=== PATIENT | male | born 1960 | race Asian ===

== ENCOUNTER 2020-06-24 13:41 | Emergency (ER) | payer MEDICAID ==
[~2020-06-24] VITALS: Ht 167.6 cm; Wt 68.2 kg
[~2020-06-24 13:41] MED LIST: ACYC400T PO; ALBU18HF2 INH; FLONASE NS; LISI10TA4 PO; NAPR-1166 PO; OMEP20CA15 PO
[2020-06-24 13:48] VITALS: BP 128/94
[2020-06-24] MEDS ORDERED: PRED20TA PO (15:10)
[2020-06-24] MEDS ORDERED: DIPH25CA83 PO (15:10)
== END 2020-06-24 15:41 | disposition home or self-care (01) ==
LOC: ER 13:42
DX: R21 Rash and other nonspecific skin eruption (principal); T36.0X5A Adverse effect of penicillins, initial encounter; K08.89 Other specified disorders of teeth and supporting structures; J45.909 Unspecified asthma, uncomplicated; K21.9 Gastro-esophageal reflux disease without esophagitis; Z88.1 Allergy status to other antibiotic agents; Z79.899 Other long term (current) drug therapy; Y92.89 Other specified places as the place of occurrence of the external cause
CPT/HCPCS: 99283

== ENCOUNTER 2020-09-06 21:38 | Emergency (ER) | payer MEDICAID ==
[~2020-09-06] VITALS: Ht 167.6 cm; Wt 68.2 kg
[~2020-09-06 21:38] MED LIST changes: +DIPH25CA83 PO; +LISI10TA27 PO; -LISI10TA4 PO
[2020-09-06] MEDS ORDERED: methylPREDNISolone sod succ 125mg/2ml vial IV ONE (21:45)
[2020-09-06] MEDS ORDERED: epiNEPHrine 1 mg/ml inj SQ STA (21:45)
[2020-09-06] MEDS ORDERED: diphenhydrAMINE 50 mg/ml inj IV ONE (21:45)
[2020-09-06] MEDS ORDERED: racepinephrine 11.25mg/0.5ml nebule IH ONE (21:45)
[2020-09-06] MEDS ORDERED: famotidine/PF 10 mg/ml inj IV ONE (21:45)
[2020-09-06 21:57] LABS: BASOPHILS % (AUTO) 0.6 % (0-1); EOSINOPHILS # (AUTO) 0.2 X10'3 (0-0.9); EOSINOPHILS % (AUTO) 2.6 % (0-6); HEMATOCRIT 48.2 % (42.0-52.0); HEMOGLOBIN 15.7 g/dl (14.0-17.9); LYMPHOCYTES # (AUTO) 3.1 X10'3 (1.1-4.8); LYMPHOCYTES % (AUTO) 50.8 % (21-51); MEAN CORPUSCULAR HEMOGLOBIN 26.9 PG (27.0-31.0); MEAN CORPUSCULAR HGB CONC 32.5 g/dL (33.0-36.5); MEAN CORPUSCULAR VOLUME 82.6 FL (78-98); MEAN PLATELET VOLUME 7.7 FL (7.4-10.4); MONOCYTES # (AUTO) 0.4 X10'3 (0-0.9); MONOCYTES % (AUTO) 5.7 % (2-12); NEUTROPHILS # (AUTO) 2.5 X10'3 (1.8-7.7); NEUTROPHILS % (AUTO) 40.3 % (42-75); PLATELET COUNT 291 X10'3 (140-440); RED BLOOD COUNT 5.83 X10'6 (4.70-6.10); RED CELL DISTRIBUTION WIDTH 13.8 % (11.5-14.5); WHITE BLOOD COUNT 6.2 X10'3 (4.5-11.0)
--- NOTE | 2020-09-06 21:57 | NUR ---
labs drawn piv placed, rt at bedside beginning racemic epi now. pt just given pepcid and solumedrol and benedryl iv and epinephrin sq. Pts kb appears to be slightly improved.
--- NOTE | 2020-09-06 22:00 | NUR ---
clear breath sounds and no stridor
[2020-09-06 22:12] LABS: ALANINE AMINOTRANSFERASE 18 U/L (12-78); ALBUMIN 3.6 G/DL (3.4-5.0); ALBUMIN/GLOBULIN RATIO 0.9 (1.1-1.5); ALKALINE PHOSPHATASE 72 IU/L (46-116); ANION GAP 12 (8-16); ASPARTATE AMINO TRANSFERASE 14 U/L (10-37); BILIRUBIN,TOTAL 0.3 MG/DL (0.1-1.0); BLOOD UREA NITROGEN 21 MG/DL (7-18); BUN/CREATININE RATIO 13.2 (5.4-32.0); CALCIUM 8.8 MG/DL (8.5-10.1); CHLORIDE 105 MMOL/L (99-107); CREATININE 1.59 MG/DL (0.60-1.10); GLUCOSE 161 MG/DL (70-104); SODIUM 140 MMOL/L (135-145); TOTAL CARBON DIOXIDE 22.6 MMOL/L (24-32); TOTAL PROTEIN 7.6 G/DL (6.4-8.2); eGFR 45 ML/MIN
[2020-09-06 22:23] VITALS: BP 144/94
== END 2020-09-06 22:51 | disposition home or self-care (01) ==
LOC: ER 21:39
DX: R21 Rash and other nonspecific skin eruption (principal); T36.0X5A Adverse effect of penicillins, initial encounter; J45.909 Unspecified asthma, uncomplicated; K21.9 Gastro-esophageal reflux disease without esophagitis; Z88.1 Allergy status to other antibiotic agents; Z88.8 Allergy status to other drugs, medicaments and biological substances; Z79.2 Long term (current) use of antibiotics; Z79.899 Other long term (current) drug therapy; Y92.89 Other specified places as the place of occurrence of the external cause
CPT/HCPCS: 36415; 71045; 80053; 85025; 93005; 94640; 96372; 96374; 96375; 99291; J0171; J1200; J2930; J3490; 94760

== ENCOUNTER 2021-09-08 14:51 | Emergency (ER) | payer MEDICAID ==
[~2021-09-08] VITALS: Ht 167.6 cm; Wt 68.2 kg
[2021-09-08] MEDS ORDERED: hydrOXYzine 25 MG tablet PO ONE (15:20)
[2021-09-08] MEDS ORDERED: methylPREDNISolone sod succ 125mg/2ml vial IV ONE (15:20)
[2021-09-08] MEDS ORDERED: famotidine/PF 10 mg/ml inj IV ONE (15:20)
[2021-09-08 16:05] VITALS: BP 154/106
--- NOTE | 2021-09-08 16:08 | NUR ---
Pt given and understands d/c instructions. IV d/c'd, catheter was intact. Ambulatory with a steady gait.
== END 2021-09-08 16:08 | disposition home or self-care (01) ==
LOC: ER 14:52
DX: T78.40XA Allergy, unspecified, initial encounter (principal); F17.200 Nicotine dependence, unspecified, uncomplicated; J45.909 Unspecified asthma, uncomplicated; K21.9 Gastro-esophageal reflux disease without esophagitis; Z88.1 Allergy status to other antibiotic agents; Z91.013 Allergy to seafood; Z79.899 Other long term (current) drug therapy
CPT/HCPCS: 96374; 96375; 99284; J2930; J3490; Q0177

== ENCOUNTER 2022-02-20 20:16 | Emergency (ER) | payer MEDICAID ==
[~2022-02-20] VITALS: Ht 167.6 cm; Wt 68.2 kg
[2022-02-20] MEDS ORDERED: diphenhydrAMINE 25mg capsule PO ONE (20:55)
--- NOTE | 2022-02-20 20:56 | NUR ---
EXPLAINED PT'S RASH TO ROCKY. OBTAINED A VERBAL ORDER FOR BENADRYL 50 MG PO NOW. ORDER REPEATED BACK FOR ACCURACY. ORDER PLACED.
[2022-02-20] MEDS ORDERED: dexamethasone sod phosphate 10mg/ml inj PO STA (23:04)
[2022-02-20] MEDS ORDERED: famotidine 10mg tablet PO STA (23:04)
[2022-02-20] MEDS ORDERED: epiNEPHrine 1 mg/ml inj SQ STA (23:04)
[2022-02-20] MEDS ORDERED: EPIN0.3P3 IM (23:14)
[2022-02-20] MEDS ORDERED: famotidine 20mg tablet PO ONE (23:15)
[2022-02-20 23:30] VITALS: BP 152/99
== END 2022-02-20 23:31 | disposition home or self-care (01) ==
LOC: ER 20:16
DX: T78.40XA Allergy, unspecified, initial encounter (principal); J45.909 Unspecified asthma, uncomplicated; K21.9 Gastro-esophageal reflux disease without esophagitis; Z91.013 Allergy to seafood; Z88.0 Allergy status to penicillin; Z88.1 Allergy status to other antibiotic agents; Z79.1 Long term (current) use of non-steroidal anti-inflammatories (NSAID); Z79.2 Long term (current) use of antibiotics; Z79.899 Other long term (current) drug therapy
CPT/HCPCS: 96374; 99284; J0171; J1100; Q0163

== ENCOUNTER 2024-06-10 00:29 | Emergency (ER) | payer MEDICAID ==
[~2024-06-10] VITALS: Ht 167.6 cm; Wt 70.7 kg
[~2024-06-10 00:29] MED LIST changes: +EPIN0.3P3 IM
[2024-06-10 00:46] VITALS: BP 149/97; PULSE 72; RESP 16; O2SAT 98
[2024-06-10] MEDS: diphenhydrAMINE 25mg capsule PO ONE (01:42)
[2024-06-10] MEDS ORDERED: DIPH25CA83 PO (03:29)
[2024-06-10] MEDS ORDERED: DEC4T PO (03:29)
[2024-06-10] MEDS ORDERED: CIME800T PO (03:29)
[2024-06-10] MEDS: normal saline 1000ML IV soln IVB STA (03:35)
[2024-06-10] MEDS: diphenhydrAMINE 50 mg/ml inj IV ONE (03:36)
[2024-06-10] MEDS: methylPREDNISolone sod succ 125mg/2ml vial IV ONE (03:36)
[2024-06-10] MEDS: famotidine/PF 10 mg/ml inj IV ONE (03:36)
[2024-06-10] MEDS: epiNEPHrine 1 mg/ml inj SQ ONE (03:37)
[2024-06-10 04:40] VITALS: TEMP 98.9
[2024-06-11] MEDS ORDERED: PRED20TA PO (21:43)
== END 2024-06-10 04:41 | disposition home or self-care (01) ==
LOC: ER 00:29
DX: T78.2XXA Anaphylactic shock, unspecified, initial encounter (principal); J45.909 Unspecified asthma, uncomplicated; K21.9 Gastro-esophageal reflux disease without esophagitis; Z88.0 Allergy status to penicillin; Z88.8 Allergy status to other drugs, medicaments and biological substances; Y92.89 Other specified places as the place of occurrence of the external cause
CPT/HCPCS: 96361; 96372; 96374; 96375; 99284; J0171; J1200; J2919; J3490; J7030; Q0163

== ENCOUNTER 2024-06-11 20:57 | Emergency (ER) | payer MEDICAID ==
[~2024-06-11] VITALS: Ht 167.6 cm; Wt 70.7 kg
[~2024-06-11 20:57] MED LIST changes: +CIME800T PO; +DEC4T PO
[2024-06-11 21:03] VITALS: BP 130/95; PULSE 90; RESP 18; O2SAT 96
[2024-06-11] MEDS ORDERED: PRED20TA PO (21:43)
[2024-06-11] MEDS: hydrOXYzine 25 MG tablet PO ONE (21:44)
[2024-06-11] MEDS: famotidine 20mg tablet PO ONE (21:44)
[2024-06-11] MEDS: dexamethasone sod phosphate 10mg/ml inj IM ONE (21:45)
[2024-06-11 21:49] VITALS: TEMP 97.8
== END 2024-06-11 21:52 | disposition home or self-care (01) ==
LOC: ER 20:58
DX: T78.1XXA Other adverse food reactions, not elsewhere classified, initial encounter (principal); L27.2 Dermatitis due to ingested food; K21.9 Gastro-esophageal reflux disease without esophagitis; J45.909 Unspecified asthma, uncomplicated; Z91.013 Allergy to seafood; Z88.1 Allergy status to other antibiotic agents; Z91.018 Allergy to other foods; Z79.1 Long term (current) use of non-steroidal anti-inflammatories (NSAID); Z79.899 Other long term (current) drug therapy; X58.XXXA Exposure to other specified factors, initial encounter
CPT/HCPCS: 96372; 99283; J1100; Q0177

== ENCOUNTER 2024-06-14 01:29 | Emergency (ER) | payer MEDICAID ==
[~2024-06-14] VITALS: Ht 167.6 cm; Wt 71.4 kg
[~2024-06-14 01:29] MED LIST changes: +PRED20TA PO
[2024-06-14 02:03] LABS: BASOPHILS % (AUTO) 0.5 % (0-1); EOSINOPHILS # (AUTO) 0.1 X10'3 (0-0.9); EOSINOPHILS % (AUTO) 1.5 % (0-6); HEMOGLOBIN 13.7 g/dl (14.0-17.9); LYMPHOCYTES # (AUTO) 2.8 X10'3 (1.1-4.8); LYMPHOCYTES % (AUTO) 31.8 % (21-51); MEAN CORPUSCULAR HEMOGLOBIN 26.4 PG (27.0-31.0); MEAN CORPUSCULAR HGB CONC 32.7 g/dL (33.0-36.5); MEAN CORPUSCULAR VOLUME 80.8 FL (78-98); MEAN PLATELET VOLUME 7.5 FL (7.4-10.4); MONOCYTES % (AUTO) 10.9 % (2-12); NEUTROPHILS # (AUTO) 4.9 X10'3 (1.8-7.7); NEUTROPHILS % (AUTO) 55.3 % (42-75); PLATELET COUNT 259 X10'3 (140-440); RED CELL DISTRIBUTION WIDTH 14.4 % (11.5-14.5); WHITE BLOOD COUNT 8.9 X10'3 (4.5-11.0)
[2024-06-14 02:21] LABS: ALANINE AMINOTRANSFERASE 34 U/L (12-78); ALBUMIN 3.4 G/DL (3.4-5.0); ALBUMIN/GLOBULIN RATIO 0.9 (1.1-1.5); ALKALINE PHOSPHATASE 62 IU/L (46-116); ANION GAP 9 (8-16); ASPARTATE AMINO TRANSFERASE 19 U/L (10-37); BILIRUBIN,TOTAL 0.3 MG/DL (0.1-1.0); BLOOD UREA NITROGEN 27 MG/DL (7-18); BUN/CREATININE RATIO 20.5 (10.0-20.0); CALCIUM 8.6 MG/DL (8.5-10.1); CHLORIDE 105 MMOL/L (99-107); CREATININE 1.32 MG/DL (0.60-1.10); GLUCOSE 99 MG/DL (70-104); POTASSIUM 3.3 MMOL/L (3.5-5.1); SODIUM 140 MMOL/L (135-145); TOTAL CARBON DIOXIDE 26.5 MMOL/L (24-32); TOTAL PROTEIN 7.3 G/DL (6.4-8.2); eCRCL 53 ML/MIN; eGFR 55 ML/MIN
[2024-06-14 02:30] LABS: PRO BRAIN NATRIURETIC PEPTIDE 87 PG/ML (0-125)
[2024-06-14] MEDS ORDERED: NAPR-56 PO (03:27)
[2024-06-14] MEDS ORDERED: COLC0.6T72 PO (03:27)
[2024-06-14] MEDS: naproxen 500mg tablet PO ONE (03:45)
[2024-06-14] MEDS: dexamethasone 4mg tablet PO ONE (03:45)
[2024-06-14] MEDS: colchicine 0.6mg tablet PO ONE (03:45)
[2024-06-14 03:54] VITALS: BP 144/70; PULSE 74; RESP 18; TEMP 97.9; O2SAT 98
[2024-06-14 04:32] LABS: C-REACTIVE PROTEIN 1.67 MG/DL (0.0-0.5)
[2024-06-14 04:40] LABS: URIC ACID 6.8 MG/DL (3.5-7.2)
== END 2024-06-14 03:49 | disposition home or self-care (01) ==
LOC: ER 01:30
DX: M30.0 Polyarteritis nodosa (principal); J45.909 Unspecified asthma, uncomplicated; K21.9 Gastro-esophageal reflux disease without esophagitis; Z88.1 Allergy status to other antibiotic agents; Z91.013 Allergy to seafood; Z79.899 Other long term (current) drug therapy
CPT/HCPCS: 36415; 71045; 80053; 83880; 84484; 84550; 85025; 85651; 86140; 93005; 99285

== ENCOUNTER 2024-09-01 17:27 | Inpatient (IN) | payer MEDICAID ==
[~2024-09-01] VITALS: Ht 167.6 cm; Wt 72.1 kg
[~2024-09-01 17:27] MED LIST changes: +COLC0.6T72 PO; -PRED20TA PO
--- NOTE | 2024-09-01 17:44 | Physician Documentation ---
History of Present Illness ~ Chief Complaint: Stroke Alert Stated Complaint: NUMBNESS L ARM AND FACE Time Seen by MD: 17:43 [facility] Source: patient, RN/MD, RN notes reviewed, old records Mode of Arrival: POV Exam Limitations: no limitations HPI 63 year old male presents to the emergency room for complaints of a stroke alert. Patient states that he had woken up from a nap at 1500 with numbness of his left face and arm but not in his legs. He states that he has a little headache right now and was previously experiencing back pain. He denies any recent illness, no weakness, and no facial droop. Patients last known normal was prior to his nap but he states he cannot recall when he fell asleep. Patient denies any other associated symptoms at this time. Patient denies any other alleviating or exacerbating factors. Medication Reconciliation Allergies: Coded Allergies: shrimp (Verified Allergy, Severe, ANAPHALYXIS, 06/14/24) amoxicillin (Verified Allergy, Unknown, 06/14/24) Scheduled Albuterol Sulfate (Ventolin Hfa), 2 PUFFS INH Q4HPRN, (Reported) Atorvastatin Calcium (Atorvastatin Calcium), 1 TAB PO DAILY, (Reported) Losartan/Hydrochlorothiazide (Losartan-Hctz 100-12.5 Mg Tab), 1 TAB PO DAILY, (Reported) Meloxicam (Meloxicam), 1 TAB PO DAILY, (Reported) Omeprazole (Omeprazole), 1 CAP PO DAILY, (Reported) Tizanidine Hcl (Zanaflex), 1-2 TAB PO HS, (Reported) Scheduled PRN Aspirin/Acetaminophen/Caffeine (Excedrin Extra Strength Tablet), 2 TAB PO Q6H PRN for pain, (Reported) Diphenhydramine HCl (Diphenhydramine HCl), 1 TAB PO Q6H PRN for allergies, (Reported) Loratadine (Loratadine), 1 TAB PO DAILY PRN for allergies, (Reported) Discontinued Medications Acyclovir (Acyclovir), 1 TABLET PO Q8H, (Reported) Discontinued Reason: patient no longer taking Cimetidine (Tagamet), 1 TAB PO Q12H Discontinued Reason: patient no longer taking Colchicine (Colchicine), 1 TAB PO DAILY Discontinued Reason: patient no longer taking Dexamethasone (Decadron), 4 TAB PO DAILY Discontinued Reason: patient no longer taking Diphenhydramine Hcl (Benadryl), 1 CAP PO HS Discontinued Reason: patient no longer taking Diphenhydramine Hcl (Benadryl), 1 CAP PO TID Discontinued Reason: patient no longer taking Epinephrine (Epipen 2-Juan), 1 SYR IM ONCE Discontinued Reason: patient no longer taking Lisinopril (Lisinopril), 1 TABLET PO DAILY, (Reported) Discontinued Reason: patient no longer taking Naproxen (Naproxen), 1 TABLET PO BID, (Reported) Discontinued Reason: patient no longer taking [Flonase], 50 MCG NS, (Reported) Discontinued Reason: patient no longer taking Past Medical History Past Medical History: Headache, Asthma, GERD Past Surgical History: no surgical history Alcohol Use: None Drug Use: none Lives In: Home Review of Systems All Other Systems at this time: Reviewed and Negative ROS As stated above in the HPI, otherwise all systems are reviewed and negative. Physical Exam Vital Signs: RN Vital Signs have been reviewed: Yes, Temperature: 97.1, Source: Temporal, Heart Rate: 93, Respiratory Rate: 18, BP: 132/84, Pulse Oximetry: 97, Weight: 72.100 Oxygen Flow Rate: 0 Pulse Oximetry Reflects: adequate oxygenation General Appearance General: The patient is well developed, well nourished, nontoxic appearing and is in no acute distress. Skin: [place], warm and dry with no rashes. HEENT: Head was normocephalic and atraumatic. Eyes - pupils equal, round, reactive to light and accommodation. Extraocular movements were intact. Conjunctivae were nonicteric. Ears - bilateral tympanic membranes were normal. The mouth and oropharynx were clear with moist mucous membranes. There were no pharyngeal exudates or erythema. Neck: Supple and nontender. There was no jugular venous distention, lymphadeno hernando, thyromegaly or masses. Chest: Clear to auscultation bilaterally without wheezes, rales or rhonchi. No accessory muscle use. No dullness to percussion. Heart: Rate regular and rhythmic. S1, S2. No murmurs. Palpation of the chest wall was normal. No rubs or thrills. Abdomen: Soft, nontender and nondistended. Positive bowel sounds. No guarding or rebound. No hepatosplenomegaly or palpable masses. Extremities: No cyanosis, clubbing or edema. The patient moves all extremities. Pulses were equal and symmetric. Neurologic: Numbness to V1/2/3 extending to neck and left extremities. Cranial nerves II-XII were intact. Motor strength was 5/5 in all four extremities. Deep tendon reflexes were intact in both upper and lower extremities. Psychologic: The patient was oriented to person, place and time. The patient demonstrated appropriate judgement and insight. Progress Results/Orders Reviewed/noted all lab results: Yes Results/Orders Orders - JEFFRY DASILVA MD Monitor (09/01/24 17:36) 2 Large Bore Ivs (09/01/24 17:36) Electrocardiogram (09/01/24 17:36) Chest,Single View (09/01/24 17:51) Accucheck (09/01/24 17:36) Ct Stroke Alert (09/01/24 17:36) [place] Prov.Neuro Consult (09/01/24 17:44) Cta Neck/Head (09/01/24 19:50) Page Hospitalist (09/01/24 19:55) Fill Out Med Reconciliation (09/01/24 19:55) Completed Orders - JEFFRY DASILVA MD Cbc/Diff (09/01/24 17:36) Electrocardiogram (09/01/24 17:36) Chest,Single View (09/01/24 17:51) Ct Stroke Alert (09/01/24 17:36) BMP (09/01/24 17:36) PTT (09/01/24 17:36) Pt Inr (09/01/24 17:36) ESR (09/01/24 17:44) C-Reactive Protein (09/01/24 17:42) Cta Neck/Head (09/01/24 19:50) Aspirin 81mg Chew Tablet (Aspirin 81mg C (09/01/24 19:55) Clopidogrel Tablet (Plavix Tablet) (09/01/24 19:55) Iohexol 350mg/Ml 100ml (Omnipaque 350mg/ (09/01/24 19:56) Vital Signs 09/01/24 09/01/24 09/01/24 09/01/24 17:31 19:36 19:45 19:50 Temp 97.1 97.1 Pulse 93 80 73 Resp 18 16 16 16 B/P (MAP) 132/84 116/85 (95) 114/85 Pulse Ox 97 98 98 O2 Flow Rate 0 0 Laboratory Tests Test 09/01/24 17:37 09/01/24 17:42 Glucometer 116 H White Blood Count 7.6 Red Blood Count 5.62 Hemoglobin 15.0 Hematocrit 45.4 Mean Corpuscular Volume 80.8 Mean Corpuscular Hemoglobin 26.7 L Mean Corpuscular Hemoglobin Concent 33.0 Red Cell Distribution Width 14.7 H Platelet Count 281 Mean Platelet Volume 7.4 Neutrophils (%) (Auto) 55.4 Lymphocytes (%) (Auto) 30.3 Monocytes (%) (Auto) 8.6 Eosinophils (%) (Auto) 4.5 Basophils (%) (Auto) 1.2 H Neutrophils # (Auto) 4.2 Lymphocytes # (Auto) 2.3 Monocytes # (Auto) 0.6 Eosinophils # (Auto) 0.3 Basophils # (Auto) 0.1 CBC Comment Erythrocyte Sedimentation Rate 4 Prothrombin Time 10.3 INR International Normalized Ratio 1.0 Activated Partial Thromboplast Time 27 Coagulation Comments Sodium Level 138 Potassium Level 4.1 Chloride Level 103 Carbon Dioxide Level 25.8 Anion Gap 9 Blood Urea Nitrogen 22 H Creatinine 1.40 H Estimated GFR/1.73 m2 52 BUN/Creatinine Ratio 15.7 Glucose Level 111 H Calcium Level 8.4 L C-Reactive Protein < 0.05 Albumin 3.8 Chemistry Comments Re-Evaluation Re-Evaluation : Re-Evaluation: Unchanged Progress Patient was seen and examined. Patient was given reassurance. Patient presented with unusual presentation with left upper extremity numbness as well as some facial numbness as well. It was sudden onset. Patient had a stroke alert called. CTA of the head and neck was performed as well as the patient receiving aspirin and Plavix. Patient was seen by tele neurology. Patient's laboratory work was obtained. Patient's CBC was within normal limits. Chemistry was also reassuring and within normal limits. Coagulations within normal limits. Radiographic studies were reassuring patient was then admitted for further workup and care. Continuous school lunch monitor interpretation shows normal sinus rhythm heart rate 90s, no ectopy, normal, my interpretation. Pulse oximetry monitor interpretation shows normal oxygenation 97% room air, normal, my interpretation. EKG/XRAY/CT/US/VASC/MRI Chest X-Ray : Additional Comments EXAM: XR Chest, 1 View CLINICAL INDICATION: Stroke Alert TECHNIQUE: Frontal view of the chest. COMPARISON: DI CHEST,SINGLE VIEW on DOS: 06/14/24, CHEST,SINGLE VIEW on DOS: 09/06/20 FINDINGS: LUNGS AND PLEURAL SPACES: Unremarkable. No consolidation. No pneumothorax. HEART: Unremarkable. No cardiomegaly. MEDIASTINUM: Unremarkable. Normal mediastinal contour. BONES/JOINTS: Unremarkable. No acute fracture. OTHER FINDINGS: . None. IMPRESSION: No acute cardiopulmonary process. Electronically Signed by:MYCHAL AYERS MD Date & Time: 09/01/[address] #1: Impression Clinical History left sided numbness Comparison CT HEAD on 09/01/2024, 184 images. Technique: MIPS reconstruction was performed in multiple planes. All CT scans at this medical facility are performed using dose modulation techniques as appropriate to a performed exam including the following: Automated exposure control was utilized; adjustment of the mA and/or kV according to patient size; and use of iterative reconstruction technique. All CT studies are reported to the Dose Index Registry of the [employer] [place] [employer]. 3D images be reconstructed or obtained with maximum intensity projection postprocessing (MIP), volume rendered or other 3D technique. Validated velocity measurements with angiographic measurements, velocity criteria are extrapolated from diameter data as defined by the Society of Radiologists in Ultrasound Consensus Conference Radiology 2003; 229; 340-346. There is 0 % stenosis using NASCET criteria. Contrast: OMNI 350 100ML Radiation Dose: CTDI (mGy): 30.68 12.68; DLP (mGy-cm): 490.83 RAFAEL RUSH, [id number] FINDINGS: Nonhemodynamically significant vascular calcification involving bilateral carotid siphons. The anterior and posterior circulation are intact. No significant flow cutoff, stenosis, vascular malformation, or aneurysm is noted. Aortic arch and great vessels demonstrate vascular calcification. The common and internal carotid arteries are normal in course and caliber. Left vertebral dominance is identified. No significant flow cutoff, stenosis, vascular malformation, or aneurysm is noted. IMPRESSION: Mild nonhemodynamically significant vascular calcification as described. Otherwise unremarkable CTA neck. Unremarkable [place]. Note: The diameters of the mid and distal internal carotid arteries were used as denominators for measuring ICA stenoses, as specified by the NASCET criteria. This report was electronically signed by Camilo Jimenez MD on 09/01/2024 9:52:02 PM. Electronically Signed by:CAMILO JIMENEZ MD Date & Time: 09/01/242153 CT #2: Impression EXAM: CT CT STROKE ALERT; DATE: 09/01/2024 05:45 PM HISTORY: Stroke Alert COMPARISON: None TECHNIQUE: Axial images were obtained and reformatted in coronal and sagittal planes. All CT scans at this medical facility are performed using dose modulation techniques as appropriate to a performed exam including the following: Automated exposure control was utilized; adjustment of the MA and/or KV according to patient size; and use of iterative reconstruction technique. CT Dose: CTDI volume is T2 mGy. Dose-length product is 862 mGy*cm FINDINGS: Supratentorial Region: No evidence for large acute territorial ischemia. No intracranial hemorrhage is noted. Posterior Fossa: No acute abnormality. Brainstem: Unremarkable. Sellar/Suprasellar Region: Unremarkable. Ventricles, Cisterns, Sulci: Age-appropriate. Orbits: Unremarkable. Paranasal Sinuses: Unremarkable. Mastoid Air Cells: Unremarkable. Vasculature: Unremarkable. Bones/Soft Tissues: No acute abnormality. Other: None. IMPRESSION: 1. No acute intracranial process. Electronically Signed by:NINFA EDEN MD Date & Time: 09/01/24 1820 Medical Decision Making Additional info obtained from: old records Differential Dx:Considerations: Include: Benitez's Palsey, CVA, Drug overdose, Electrolyte imbalance, Encephalopathy, Mass lesion, Respiratory failure, Subarachnoid Hemorrhage, TIA, Other Departure Impression: Primary Impression: CVA (cerebral vascular accident) Qualified Codes: I63.9 - Cerebral infarction, unspecified Referrals: NO PRIMARY CARE PROVIDER (PCP) Education Educated: Patient Educated regarding: diagnosis, need for follow up, other Critical Care Note Total Time (mins): 30 Critical Care Note The very real possibility of a deterioration of this patient's condition required the highest level of my preparedness for sudden, emergent intervention. I provided critical care services, which included medication orders, frequent reevaluations of the patient's condition and response to treatment, ordering and reviewing test results, and discussing the case with various consultants. Excludes time spent performing separately billable procedures. The critical care time associated with the care of the patient was 30 minutes. Signature Scribe Signature: Scribed for Jeffry Dasilva MD by Marco Encinas . 09/01/24 17:51 Attestation: The note accurately reflects work and decisions made by me.Jeffry Dasilva MD 17:44 JEFFRY DASILVA MD Sep 01, 2024 17:44 MARCO EMERSON Sep 01, 2024 17:51
[2024-09-01 17:53] LABS: BASOPHILS # (AUTO) 0.1 X10'3 (0-0.2); BASOPHILS % (AUTO) 1.2 % (0-1); EOSINOPHILS # (AUTO) 0.3 X10'3 (0-0.9); EOSINOPHILS % (AUTO) 4.5 % (0-6); HEMATOCRIT 45.4 % (42.0-52.0); LYMPHOCYTES # (AUTO) 2.3 X10'3 (1.1-4.8); LYMPHOCYTES % (AUTO) 30.3 % (21-51); MEAN CORPUSCULAR HEMOGLOBIN 26.7 PG (27.0-31.0); MEAN CORPUSCULAR VOLUME 80.8 FL (78-98); MEAN PLATELET VOLUME 7.4 FL (7.4-10.4); MONOCYTES # (AUTO) 0.6 X10'3 (0-0.9); MONOCYTES % (AUTO) 8.6 % (2-12); NEUTROPHILS # (AUTO) 4.2 X10'3 (1.8-7.7); NEUTROPHILS % (AUTO) 55.4 % (42-75); PLATELET COUNT 281 X10'3 (140-440); RED BLOOD COUNT 5.62 X10'6 (4.70-6.10); RED CELL DISTRIBUTION WIDTH 14.7 % (11.5-14.5); WHITE BLOOD COUNT 7.6 X10'3 (4.5-11.0)
--- NOTE | 2024-09-01 18:04 | RADIOLOGY REPORT ---
EXAM: XR Chest, 1 View CLINICAL INDICATION: Stroke Alert TECHNIQUE: Frontal view of the chest. COMPARISON: DI CHEST,SINGLE VIEW on DOS: 06/14/24, CHEST,SINGLE VIEW on DOS: 09/06/20 FINDINGS: LUNGS AND PLEURAL SPACES: Unremarkable. No consolidation. No pneumothorax. HEART: Unremarkable. No cardiomegaly. MEDIASTINUM: Unremarkable. Normal mediastinal contour. BONES/JOINTS: Unremarkable. No acute fracture. OTHER FINDINGS: . None. IMPRESSION: No acute cardiopulmonary process.
[2024-09-01 18:05] LABS: ALBUMIN 3.8 G/DL (3.4-5.0); BLOOD UREA NITROGEN 22 MG/DL (7-18); BUN/CREATININE RATIO 15.7 (10.0-20.0); CALCIUM 8.4 MG/DL (8.5-10.1); CHLORIDE 103 MMOL/L (99-107); TOTAL CARBON DIOXIDE 25.8 MMOL/L (24-32); eCRCL 50 ML/MIN; eGFR 52 ML/MIN
--- NOTE | 2024-09-01 18:22 | RADIOLOGY REPORT ---
EXAM: CT CT STROKE ALERT; DATE: 09/01/2024 05:45 PM HISTORY: Stroke Alert COMPARISON: None TECHNIQUE: Axial images were obtained and reformatted in coronal and sagittal planes. All CT scans at this medical facility are performed using dose modulation techniques as appropriate t o a performed exam including the following: Automated exposure control was utilized; adjustment of th e MA and/or KV according to patient size; and use of iterative reconstruction technique. CT Dose: CTDI volume is T2 mGy. Dose-length product is 862 mGy*cm FINDINGS: Supratentorial Region: No evidence for large acute territorial ischemia. No intracranial hemorrhage is noted. Posterior Fossa: No acute abnormality. Brainstem: Unremarkable. Sellar/Suprasellar Region: Unremarkable. Ventricles, Cisterns, Sulci: Age-appropriate. Orbits: Unremarkable. Paranasal Sinuses: Unremarkable. Mastoid Air Cells: Unremarkable. Vasculature: Unremarkable. Bones/Soft Tissues: No acute abnormality. Other: None. IMPRESSION: 1. No acute intracranial process.
[2024-09-01 18:26] LABS: APTT 27 SECONDS (22-32); PROTHROMBIN TIME 10.3 SECONDS (9.0-12.0)
[2024-09-01 18:40] LABS: ANION GAP 9 (8-16); GLUCOSE 111 MG/DL (70-104); POTASSIUM 4.1 MMOL/L (3.5-5.1); SODIUM 138 MMOL/L (135-145)
[2024-09-01 18:44] LABS: C-REACTIVE PROTEIN < 0.05 MG/DL (0.0-0.5)
--- NOTE | 2024-09-01 19:53 | [facility] CONSULT REPORT ---
[facility] Procedure Note [facility] Procedure Note Consult [facility] Note # Demographics Consult Type: Acute Stroke Level 2 (4.5-24 hrs) Patient Location: Emergency Room First Name: faby Last Name: ADRI Date of : 1960 Age: 63 Gender: Male Facility: [facility] Time of Initial Page (): 09/01/2024 18:57 Time of Return Call (): 09/01/2024 18:57 # HPI Chief Complaint: - numbness History: 63yom with GERD, HTN who woke up with L facial numbness, LUE numbness. Last Known Normal: - I have collected independent history specific to time last normal or last known well. We have collaborated with the provider and at this time, we have the most current timeline with the information that is available. 3AM # Scores Time of exam and NIHSS (): 09/01/2024 19:43 Level of Consciousness 1a: [0] = Alert; keenly responsive LOC Questions 1b: [0] = Answers both questions correctly LOC Commands 1c: [0] = Performs both tasks correctly Best Gaze 2: [0] = Normal Visual 3: [0] = No visual loss Facial Palsy 4: [0] = Normal symmetrical movements Motor Arm Left 5a: [0] = No drift Motor Arm Right 5b: [0] = No drift Motor Leg Left 6a: [0] = No drift Motor Leg Right 6b: [0] = No drift Limb Ataxia 7: [0] = Absent Sensory 8: [1] = [id number] sensory loss Best Language 9: [0] = No aphasia Dysarthria 10: [1] = [id number] dysarthria Extinction and Inattention 11: [0] = No abnormality NIHSS Total: 2 # Data Time Head CT personally read by me (): 09/01/2024 19:[address]: - no bleed - per radiologist read # Assessment Impression: In patients presenting with high risk TIA or minor stroke, treatment for 21 days with dual antiplatelet therapy (aspirin and plavix) begun within 24 hours can be beneficial for early secondary stroke prevention (CHANCE 2013, POINT 2018). # Plan Thrombolytic/Intervention: NOT IV Thrombolysis or IA Intervention candidate Thrombolytic Exclusion: > 4.5 hours Intraarterial Exclusion: - clinical exam not consistent with presence of large vessel occlusion (LVO), can reconsider if LVO found on vascular imaging Target Blood Pressure: - SBP < 220 - DBP < 120 Labs: - lipid panel - hemoglobin A1c - CBC - basic metabolic panel - urine drug screen - troponin Imaging: (urgency: STAT): - CT Angiogram Head and CT Angiogram Neck AND call back with results if abnormal Imaging: (urgency: routine): - MRI Brain without contrast Diagnostic Test: - echo with bubble study Therapy/Evaluation: - PT/OT evaluation - speech/swallow consultation Medication: - Plavix 300 mg PO x1 now, then 75 mg daily x 21 days + asa 81mg x 21 days, followed by monotherapy thereafter - start statin with goal of LDL < 70 Other: - If patient has any neurological deterioration please call me back immediately - permissive hypertension - telemetry monitoring - LDL < 70 - I have discussed my recommendations with the referring provider - provide smoking cessation resources and counseling to patient Additional Recommendations: - Permissive HTN for next 24-48 hours, then gradual control by no more than 15% daily monitoring for neurological stability - Avoid dehydration and relative hypotension - Risk factor modification, including smoking cessation and alcohol moderation if appropriate - Monitor glucose and correct as needed - If cryptogenic non-lacunar stroke on MRI, obtain outpatient cardiac monitoring for a fib # Logistics Attestation of consult completion: The patient is located at: [facility]. Facility staff participated in the visit. I performed this telemedicine visit from my offsite office utilizing interactive 2 way audio and visual telecommunication technology. Total time spent in telemedicine encounter: I spent 27 minutes reviewing clinical data and/or imaging, obtaining history, examining the patient, communicating with the onsite care team, and in preparation of this report. # Demographics First Name: faby Last Name: ADRI Facility: [facility] Neuro Consult Order placed for: Yes JOSE ANTONIO BAZZI MD Sep 01, 2024 19:53
[2024-09-01] MEDS ORDERED: iohexol 350MG/ML 100ml bottle IV ONE (19:56)
[2024-09-01] MEDS: clopidogrel 300mg tablet PO ONE (20:22)
[2024-09-01] MEDS: aspirin 81mg tab.chew PO ONE (20:22)
[2024-09-01] MEDS: PERFLUTREN PROTEIN-A MICROSPHR (Optison) 0.22 MG/ML 3ML VIAL IV ONE (20:32)
[2024-09-01] MEDS ORDERED: magnesium Cl slow-release 64mg tablet PO PRN (20:35)
[2024-09-01] MEDS ORDERED: HYDROcodone/acetaminophen 5mg/325mg tablet PO PRN (20:35)
[2024-09-01] MEDS ORDERED: morphine 2 MG/ML inj. syringe IV PRN (20:35)
[2024-09-01] MEDS ORDERED: potassium Cl 40MEQ/1/2NS 520ml 520 ML IV PRN (20:35)
[2024-09-01] MEDS ORDERED: ondansetron/PF 4mg/2ml inj IV PRN (20:35)
[2024-09-01] MEDS ORDERED: mag hydrox/Alum hydrox/simeth 30ml oral suspension PO PRN (20:35)
[2024-09-01] MEDS ORDERED: magnesium sulf-water 2g/50mL 50 ML IV PRN (20:35)
[2024-09-01] MEDS ORDERED: acetaminophen 325mg tablet PO PRN (20:35)
[2024-09-01] MEDS ORDERED: magnesium sulf-water 4G/100mL 100 ML IV PRN (20:35)
[2024-09-01] MEDS ORDERED: potassium Cl 20 mEq SR tablet PO PRN ×2 (20:35)
[2024-09-01] MEDS ORDERED: magnesium hydroxide 30ml (MOM) UD suspension PO PRN (20:35)
--- NOTE | 2024-09-01 20:51 | HISTORY AND PHYSICAL-Residence ---
History & Physical Providers to CC Resident Creating Document: NURY LARRY, RES CC: ARASH CROSS MD ~ History of Present Illness Primary Medical Doctor: [facility] Reason for Admit\Complaint: Numbness of his left hand in the afternoon History of Present Illness A 63-year-old male with PMH of syphilis, chronic back and neck pain who speaks only mein language and daughter was the sole communication manager over the phone helped with the history. Patient presented with numbness of his left hand, arm, face and head after an hour nap in the afternoon today. Patient endorses that he has these symptoms on and off but today was a little more longer 10 severe. Patient states that he had pulsating and sharp headache on his left side this morning with a severity of 7-8/10 that is subsided on taking an [id number] pill. Patient denies radiation of the pain to any other location. Patient went on a recent trip to [place]. Patient denies nausea, vomiting, speech difficulty, walking difficulties. Allergies: Coded Allergies: shrimp (Verified Allergy, Severe, ANAPHALYXIS, 06/14/24) amoxicillin (Verified Allergy, Unknown, 06/14/24) Home Medications Home Medications Active Colchicine 0.6 Mg Tablet 1 Tab PO DAILY 10 Days Decadron (Dexamethasone) 4 Mg Tablet 4 Tab PO DAILY 5 Days Take 2 tablets 3 times a day for 2 days, then 1 tablet 3 times a day for 2 days, then 1 tablet twice daily for 2 days, then 1 Benadryl (Diphenhydramine Hcl) 25 Mg Capsule 1 Cap PO TID 3 Days Tagamet (Cimetidine) 800 Mg Tablet 1 Tab PO Q12H 5 Days Epipen 2-Juan (Epinephrine HCl) 0.3 Mg/0.3 Ml Auto.injct 1 Syr IM ONCE 1 Days Benadryl (Diphenhydramine Hcl) 25 Mg Capsule 1 Cap PO HS 15 Days Reported Ventolin Hfa (Albuterol) 8.5 Gm Inhaler 2 Puffs INH Q4HPRN [Flonase] 50 Mcg NS Acyclovir 400 Mg Tablet 1 Tablet PO Q8H Lisinopril 10 Mg Tablet 1 Tablet PO DAILY Naproxen 375 Mg Tablet 1 Tablet PO BID Omeprazole 20 Mg Capsule. 1 Cap PO DAILY Past Medical History Past Medical History Hypertension Asthma COPD Hyperlipidemia Syphilis Migraine Chronic neck and back pain Past Surgical History Surgical History Comment None Past Social History Social History Comment Patient lives at home with the and daughter Sees Dr. 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 Chest pressure, chest discomfort, palpitations, syncope, lower extremity edema, paroxysmal nocturnal dyspnea Respiratory: No Shortness of breath and cough, No hemoptysis Gastrointestinal: Normal appetite. No nausea, vomiting, diarrhea, constipation, hematemesis, abdominal pain, bloating, melena or fresh blood Musculoskeletal: No gait disturbances, edema Integumentary: No change in skin, hair, nails. No swelling, bruising, abrasions Neurologic: Headache, numbness of his left upper arm, hand, left side of the face and head Psychiatric: No delusions, depression, loss of interest in normal activity or change in sleep pattern, hallucinations, suicidal ideations Endocrine: No fatigue, weakness, polydipsia, polyuria, change in appetite, heat or cold intolerance, sweating, dry skin Exam Vitals: Vital Signs Date Time Temp Pulse Resp B/P (MAP) Pulse Ox O2 Delivery O2 Flow Rate FiO2 09/01/24 19:50 73 16 114/85 98 09/01/24 19:36 97.1 0 General: General: Alert, awake, oriented, not in acute distress HEENT: Pterygium present in bilateral eyes, redness of the eyes, drooping of the left eyelid, PERRLA, no icterus, pallor, lymphadenopathy, carotid bruit Respiratory system: Bilateral vesicular breath sounds heard, no adventitious breath sounds CVS: S1-S2 heard, no murmurs/rubs/gallop GI: Soft, nontender, no organomegaly, no guarding/rigidity, bowel sounds present Neuro: Normal tendon reflexes, power of upper and lower extremities bilaterally: 4 x 5, no sensory deficits, no deviation of the angle of the mouth or deviation of the tongue, no gait abnormalities Extremities: No edema cyanosis clubbing/deformities Skin: Warm and dry Diagnostic Data Last Recorded Lab Results: 09/01/24 1742 09/01/24 174 Diagnostic Data: Laboratory Tests Test 09/01/24 17:42 Prothrombin Time 10.3 SECONDS (9.0-12.0) INR International Normalized Ratio 1.0 INR Activated Partial Thromboplast Time 27 SECONDS (22-32) Coagulation Comments Advance Care Planning Advanced Care plannin - 30 Minutes (I spent 20 minutes discussing various resuscitative measures and the patient decided to be full code) Additional Plan Assessment: A 63-year-old male with a past medical history of syphilis and migraine presented to the ED with numbness of his left upper arm face and head. Patient was admitted for the evaluation management of TIA. Plan: TIA Rule out, CVA NIHSS: 2 CT head: No acute intracranial process. Tele neurologist consulted and recommended: * Permissive hypertension: Blood pressure to be maintained below 220/110 for 48 hours * Follow up with lipid panel, A1c, MRI brain, echo, CTA head and neck * Patient received one full dose of aspirin and Plavix, continue aspirin Plavix for 21 days follow up a monotherapy * LDL goal less than 70 * Appreciate recs Follow up with urine drug screen Consider starting on a statin based on lipid panel Patient passed the swallow eval, aspiration precautions PT OT eval and treat Neuro checks q.4h Prerenal SAEID probably secondary to renal tubular stasis Elevated BUN and creatinine Continue IV fluids at 100 cc/hour Continue to monitor BMP Follow up with urine lytes and FENa Hypertension Allow permissive hypertension as per above IV labetalol 5 mg p.r.n. if blood pressure greater than 220/110 Asthma, COPD not in acute exacerbation DuoNeb q.4h p.r.n. RT eval and treat Hyperlipidemia Chronic pain Med rec pending Code status: Full code Diet: Regular DVT prophylaxis: Heparin Anticoagulation: Aspirin, Plavix Disposition: Admit to ortho neuro, Q 24 neuro checks, follow up with MRI brain and CTA head and neck Nury Larry MD Internal Medicine, PGY 1 Date of Service: Sep 01, 2024 Billing Provider: ARASH CROSS MD, SIVA, RES Sep 01, 2024 20:51
[2024-09-01] MEDS ORDERED: ipratropium/albuterol 3ml nebule NEB PRN (21:10)
[2024-09-01 21:20] LABS: CHOL/HDL RATIO 3.6 (0.00-4.99); CHOLESTEROL 153 MG/DL (0-200); HDL CHOLESTEROL 42 MG/DL (35-60); HEMOGLOBIN A1C 5.5 % (4.5-6.2); LDL CHOLESTEROL 79 MG/DL (50-100); TRIGLYCERIDES 292 MG/DL (20-135)
[2024-09-01 21:35] LABS: OSMOLALITY 292 MOSM/K (280-300)
--- NOTE | 2024-09-01 21:54 | RADIOLOGY REPORT ---
Clinical History left sided numbness Comparison CT HEAD on 09/01/2024, 184 images. Technique: MIPS reconstruction was performed in multiple planes. All CT scans at this medical facility are performed using dose modulation techniques as appropriate t o a performed exam including the following: Automated exposure control was utilized; adjustment of th e mA and/or kV according to patient size; and use of iterative reconstruction technique. All CT studies are reported to the Dose Index Registry of the [employer]. 3D images be reconstructed or obtained with maximum intensity projection postprocessing (MIP), volume rendered or other 3D technique. Validated velocity measurements with angiographic measurements, velocity criteria are extrapolated fr om diameter data as defined by the Society of Radiologists in Ultrasound Consensus Conference Radiolo gy 2003; 229; 340-346. There is 0 % stenosis using NASCET criteria. Contrast: OMNI 350 100ML Radiation Dose: CTDI (mGy): 30.68 12.68; DLP (mGy-cm): 490.83 RAFAEL RUSH, [id number] FINDINGS: Nonhemodynamically significant vascular calcification involving bilateral carotid siphons. The anter ior and posterior circulation are intact. No significant flow cutoff, stenosis, vascular malformatio n, or aneurysm is noted. Aortic arch and great vessels demonstrate vascular calcification. The common and internal carotid ar teries are normal in course and caliber. Left vertebral dominance is identified. No significant flow cutoff, stenosis, vascular malformation, or aneurysm is noted. IMPRESSION: Mild nonhemodynamically significant vascular calcification as described. Otherwise unremarkable CTA neck. Unremarkable chenega of willlis. Note: The diameters of the mid and distal internal carotid arteries were used as denominators for farida suring ICA stenoses, as specified by the NASCET criteria. This report was electronically signed by Jaime Brunner MD on 09/01/2024 9:52:02 PM.
[2024-09-01 22:00] VITALS: BP 117/79; PULSE 83; RESP 18; RESP 48; TEMP 97.9; O2SAT 97
[2024-09-01] MEDS: normal saline 1000ml 1,000 ML IV SCH (22:36)
[2024-09-01] MEDS ORDERED: TIZA4TAB11 PO (23:12)
[2024-09-01] MEDS ORDERED: LORA10TA7 PO (23:12)
[2024-09-01] MEDS ORDERED: ATOR-2 PO (23:15)
[2024-09-01] MEDS ORDERED: MELO-102 PO (23:16)
[2024-09-01] MEDS ORDERED: LOSA1TAB41 PO (23:17)
[2024-09-01] MEDS ORDERED: DIPH25TA25 PO (23:25)
[2024-09-01] MEDS ORDERED: ASPI-778 PO (23:27)
[2024-09-02] VITALS (7 sets, daily range): BP systolic 104–131; BP diastolic 74–89; PULSE 71–91; RESP 13–20; TEMP 97.8–98.6; O2SAT 97–98
[2024-09-02 06:04] LABS: BASOPHILS # (AUTO) 0.1 X10'3 (0-0.2); BASOPHILS % (AUTO) 1.4 % (0-1); EOSINOPHILS # (AUTO) 0.3 X10'3 (0-0.9); EOSINOPHILS % (AUTO) 4.6 % (0-6); HEMATOCRIT 43.5 % (42.0-52.0); HEMOGLOBIN 14.3 g/dl (14.0-17.9); LYMPHOCYTES % (AUTO) 27.5 % (21-51); MEAN CORPUSCULAR HEMOGLOBIN 26.3 PG (27.0-31.0); MEAN CORPUSCULAR HGB CONC 32.8 g/dL (33.0-36.5); MEAN PLATELET VOLUME 7.4 FL (7.4-10.4); MONOCYTES # (AUTO) 0.5 X10'3 (0-0.9); MONOCYTES % (AUTO) 6.5 % (2-12); NEUTROPHILS # (AUTO) 4.4 X10'3 (1.8-7.7); PLATELET COUNT 263 X10'3 (140-440); RED BLOOD COUNT 5.43 X10'6 (4.70-6.10); RED CELL DISTRIBUTION WIDTH 14.7 % (11.5-14.5); WHITE BLOOD COUNT 7.3 X10'3 (4.5-11.0)
[2024-09-02 06:10] LABS: ALBUMIN 3.5 G/DL (3.4-5.0); ANION GAP 9 (8-16); BLOOD UREA NITROGEN 18 MG/DL (7-18); BUN/CREATININE RATIO 16.2 (10.0-20.0); CALCIUM 8.4 MG/DL (8.5-10.1); CHLORIDE 106 MMOL/L (99-107); CREATININE 1.11 MG/DL (0.60-1.10); GLUCOSE 100 MG/DL (70-104); MAGNESIUM 2.1 MG/DL (1.5-2.4); POTASSIUM 3.6 MMOL/L (3.5-5.1); SODIUM 140 MMOL/L (135-145); TOTAL CARBON DIOXIDE 25.4 MMOL/L (24-32); eCRCL 63 ML/MIN; eGFR 67 ML/MIN
--- NOTE | 2024-09-02 07:03 | ELECTROCARDIOGRAPH REPORT ---
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 Jeffry Lopez Measurements Intervals [place] Rate: 84 P: 50 NM: 159 QRS: -41 QRSD: 102 T: 20 QT: 403 QTc: 477 Interpretive Statements Sinus rhythm Inferior infarct, old Electronically Signed On 09-02-2024 8:36:[address] Jeffry Lopez Please click the below link to view image of tracing.
[2024-09-02] MEDS: K and/or MAG REPLACEMENT MC SCH (08:00)
[2024-09-02] MEDS ORDERED: aspirin/acetaminophen/caffeine tablet PO PRN (08:15)
[2024-09-02] MEDS ORDERED: albuterol 2.5 MG/3 ML nebule NEB PRN (08:15)
[2024-09-02] MEDS ORDERED: diphenhydrAMINE 25mg capsule PO PRN (08:15)
[2024-09-02] MEDS ORDERED: loratadine 10mg tablet PO PRN (08:15)
[2024-09-02] MEDS: aspirin 81mg, enteric-coated 1 TAB TABLET.DR PO SCH (09:15)
[2024-09-02] MEDS: clopidogrel 75mg tablet PO SCH (09:15)
[2024-09-02] MEDS: heparin, porcine 5000 units/ml vial SQ SCH (09:15)
[2024-09-02] MEDS: docusate sod 100mg capsule PO SCH (09:16)
--- NOTE | 2024-09-02 10:40 | PROGRESS NOTE- Residence ---
Progress Note - Resident Providers to CC Resident Creating Document: JOSELYN PECK RES ~ Antibiotic Timeout Antibiotic Ordered?: No Subjective Patient was seen and examined at the bedside today. He denied any headache. His weakness seems to have improved. Objective Vital Signs Date Time Temp Pulse Resp B/P (MAP) Pulse Ox O2 Delivery O2 Flow Rate FiO2 09/02/24 06:30 75 09/02/24 06:00 98.6 13 104/74 (84) 97 Room Air 09/01/24 19:36 0 Result Diagram: 09/02/24 0540 09/02/24 0540 General: Alert, awake, oriented, not in acute distress HEENT: Pterygium present in bilateral eyes, redness of the eyes, drooping of the left eyelid, PERRLA, no icterus, pallor, lymphadenopathy, carotid bruit Respiratory system: Bilateral vesicular breath sounds heard, no adventitious breath sounds CVS: S1-S2 heard, no murmurs/rubs/gallop GI: Soft, nontender, no organomegaly, no guarding/rigidity, bowel sounds present Neuro: Normal tendon reflexes, power of upper and lower extremities bilaterally: 4 x 5, no sensory deficits, no deviation of the angle of the mouth or deviation of the tongue, no gait abnormalities Extremities: No edema cyanosis clubbing/deformities Skin: Warm and dry Coagulation Studies Laboratory Tests Test 09/01/24 17:42 Prothrombin Time 10.3 SECONDS (9.0-12.0) INR International Normalized Ratio 1.0 INR Activated Partial Thromboplast Time 27 SECONDS (22-32) Coagulation Comments Plan Plan Assessment: A 63-year-old male with a past medical history of syphilis and migraine presented to the ED with numbness of his left upper arm face and head. Patient was admitted for the evaluation management of TIA. Plan: TIA Rule out, CVA NIHSS: 2 Tele neurologist consulted Blood pressure is in the normal range. Lipid panel, LDL 79, Patient received one full dose of aspirin and Plavix, continuing Plavix for 21 days and aspirin for life. CT head-acute intracranial causes CTA head and neck Mild nonhemodynamically significant vascular calcification as described. Otherwise unremarkable CTA neck. Echocardiogram-Normal LV size and wall thickness. Overall systolic function is normal. Overall LVEF is around 60%. .RVSP 32 mmHg MRI pending Follow up with urine drug screen Patient passed the swallow eval, aspiration precautions PT OT eval and treat Neuro checks q.4h Prerenal SAEID probably secondary to renal tubular stasis Creatinine improved to baseline. Continue IV fluids at 100 cc/hour Continue to monitor BMP Hypertension Allow permissive hypertension as per above Continued home medication losartan 100 mg and hydrochlorothiazide 12.5 mg Asthma, COPD not in acute exacerbation DuoNeb q.4h p.r.n. RT eval and treat Hyperlipidemia Chronic pain Continued home medication atorvastatin. Code status: Full code Diet: Regular DVT prophylaxis: Heparin Anticoagulation: Aspirin, Plavix Joselyn Peck M.D PGY1 Addendum ac cva, poss embolic Date of Service: Sep 02, 2024 Billing Provider: BUSHRA CHRISTINE MD Common Visit Codes: [id number] INP/OBS CARE(HIGH) JOSELYN PECK, RES Sep 02, 2024 10:40 BUSHRA CHRISTINE MD Sep 02, 2024 20:41
--- NOTE | 2024-09-02 13:07 | RADIOLOGY REPORT ---
MRI BRAIN WITHOUT CONTRAST CLINICAL HISTORY: cva TECHNIQUE: Diffusion and sagittal T1 images provided for evaluation. Comparison: CTA head 09/01/2024 FINDINGS: There is a small focus of restricted diffusion in the left parietal lobe deep white matter (axial DWI image 18). There May also be a small focus of restricted diffusion in the right parietal lobe subco rtical white matter (axial DWI image 17). These may represent small acute to subacute infarcts. There is no gross evidence of acute hemorrhage. There is no hydrocephalus or extra-axial fluid colle ction. The sagittal midline structures appear unremarkable. The craniocervical junction is within nor mal limits. The calvarium demonstrates normal marrow signal. IMPRESSION: 1. Small foci of restricted diffusion in the left parietal lobe deep white matter and in the right pa rietal lobe subcortical white matter may represent small acute to subacute infarcts. There is no anderson s evidence of acute hemorrhage. HS:Y
[2024-09-03 02:00] VITALS: BP 134/86; PULSE 68; RESP 18; TEMP 98; O2SAT 97
[2024-09-03 03:17] LABS: BILIRUBIN,URINE NEGATIVE (Neg); CLARITY,URINE CLEAR (Clear); COLOR,URINE YELLOW (Yellow); GLUCOSE, URINE NEGATIVE (Neg); KETONES,URINE NEGATIVE (Neg); LEUKOCYTE ESTERASE ,URINE NEGATIVE (Neg); NITRITES, URINE NEGATIVE (Neg); OCCULT BLOOD,URINE NEGATIVE (Neg); PROTEIN,URINE NEGATIVE (Neg); UROBILINOGEN,URINE 0.2 E.U/dL (0.2-1.0)
[2024-09-03 03:22] LABS: UA COLLECTION TYPE URINAL
[2024-09-03 03:48] LABS: URINE AMPHETAMINE SCREEN NEGATIVE (Neg); URINE BARBITUATE SCREEN NEGATIVE (Neg); URINE BENZODIAZEPINES SCREEN NEGATIVE (Neg); URINE CANNABINOID SCREEN NEGATIVE (Neg); URINE COCAINE SCREEN NEGATIVE (Neg); URINE METHADONE SCREEN NEGATIVE (Neg); URINE OPIATE SCREEN NEGATIVE (Neg); URINE PHENCYCLIDINE SCREEN NEGATIVE (Neg)
[2024-09-03 04:56] LABS: BASOPHILS # (AUTO) 0.1 X10'3 (0-0.2); EOSINOPHILS # (AUTO) 0.3 X10'3 (0-0.9); EOSINOPHILS % (AUTO) 5.7 % (0-6); HEMATOCRIT 38.3 % (42.0-52.0); HEMOGLOBIN 12.7 g/dl (14.0-17.9); LYMPHOCYTES # (AUTO) 1.9 X10'3 (1.1-4.8); LYMPHOCYTES % (AUTO) 33.3 % (21-51); MEAN CORPUSCULAR HEMOGLOBIN 26.4 PG (27.0-31.0); MEAN CORPUSCULAR HGB CONC 33.2 g/dL (33.0-36.5); MEAN CORPUSCULAR VOLUME 79.5 FL (78-98); MEAN PLATELET VOLUME 7.5 FL (7.4-10.4); MONOCYTES # (AUTO) 0.4 X10'3 (0-0.9); MONOCYTES % (AUTO) 6.9 % (2-12); NEUTROPHILS % (AUTO) 52.1 % (42-75); PLATELET COUNT 224 X10'3 (140-440); RED BLOOD COUNT 4.82 X10'6 (4.70-6.10); RED CELL DISTRIBUTION WIDTH 14.8 % (11.5-14.5); WHITE BLOOD COUNT 5.7 X10'3 (4.5-11.0)
[2024-09-03 05:05] LABS: ALBUMIN 3.1 G/DL (3.4-5.0); ANION GAP 6 (8-16); BLOOD UREA NITROGEN 19 MG/DL (7-18); BUN/CREATININE RATIO 15.8 (10.0-20.0); CALCIUM 8.2 MG/DL (8.5-10.1); CHLORIDE 109 MMOL/L (99-107); GLUCOSE 91 MG/DL (70-104); POTASSIUM 3.9 MMOL/L (3.5-5.1); SODIUM 142 MMOL/L (135-145); TOTAL CARBON DIOXIDE 26.6 MMOL/L (24-32); eCRCL 58 ML/MIN; eGFR 62 ML/MIN
[2024-09-03 06:00] VITALS: BP 158/85; PULSE 60; RESP 18; TEMP 97.5; O2SAT 99
[2024-09-03] MEDS ORDERED: non-formulary drug (Losartan/Hydrochlorothiazide (Losartan-Hctz 100-12.5 Mg Tab) 1 TAB) PO SCH (08:00)
[2024-09-03] MEDS: MELOXICAM 7.5 MG TABLET PO SCH (08:00)
[2024-09-03 08:22] VITALS: PULSE 81; RESP 16; O2SAT 98
[2024-09-03] MEDS: losartan 50mg tablet PO SCH (09:18)
[2024-09-03] MEDS: atorvastatin 20mg tablet PO SCH (09:20)
[2024-09-03] MEDS: pantoprazole 40mg Tablet.DR PO SCH (09:20)
[2024-09-03] MEDS: HYDROchlorothiazide 12.5mg capsule PO SCH (09:20)
[2024-09-03 10:00] VITALS: BP 136/79; PULSE 60; RESP 20; TEMP 97.6; O2SAT 98
--- NOTE | 2024-09-03 10:45 | CONSULTATION REPORT ---
History of Present Illness Providers to CC ~ Reason for Admit\Admit Dx: Numbness of his left hand in the afternoon Refering MD: izabel Allergies: Coded Allergies: shrimp (Verified Allergy, Severe, ANAPHALYXIS, 06/14/24) amoxicillin (Verified Allergy, Unknown, 06/14/24) Home Medications Home Medications Active Reported Excedrin Extra Strength Tablet (Acetaminophen/Aspirin/Caffeine) 1 Each Tablet 2 Tab PO Q6H PRN Diphenhydramine HCl 25 Mg Tablet 1 Tab PO Q6H PRN 30 Days Losartan-Hctz 100-12.5 Mg Tab (Losartan/Hydrochlorothiazide) 100 Mg-12.5 Mg Tablet 1 Tab PO DAILY 30 Days Meloxicam 15 Mg Tablet 1 Tab PO DAILY 30 Days Atorvastatin Calcium 80 Mg Tablet 1 Tab PO DAILY 30 Days Zanaflex (Tizanidine Hcl) 4 Mg Tablet 1-2 Tab PO HS 30 Days Loratadine 10 Mg Tablet 1 Tab PO DAILY PRN Ventolin Hfa (Albuterol) 8.5 Gm Inhaler 2 Puffs INH Q4HPRN Omeprazole 20 Mg Capsule.dr 1 Cap PO DAILY Physical Exam Last Vital Signs Recorded: Temperature: 97.5, Source: Oral, Heart Rate: 79, Respiratory Rate: 16, BP: 158/85, Pulse Oximetry: 98, Weight: 72.100 Results Diagram Lab Result Diagram: 09/03/2442409/03/24424 Assessment/Plan Additional Plan [place] [facility] Note # Demographics Consult Type: Follow-Up Phone Call Patient Location: Inpatient First Name: faby Last Name: haley Date of : 1960 Age: 63 Gender: Male Facility: [facility] Time of Initial Page ([place] Time): 09/03/2024 10:13 Time of Return Call ( Time): 09/03/2024 10:13 Phone Only Consult: MRI brain showing strokes. possible a contralateral subacute stroke as well. CTA without a. cause. TTE pending Phone Agreement: - phone consult deemed mutually sufficient for patient care # Assessment Impression: - Ischemic Stroke (Acute) # Plan Blood Pressure Management: - nicardipine - labetalol Target Blood Pressure: - SBP < 220 - DBP < 120 Labs: - hemoglobin A1c - lipid panel Diagnostic Test: - echo without bubble study Therapy/Evaluation: - NPO until swallow evaluation - PT/OT evaluation - speech/swallow consultation Medication: - aspirin 81 mg daily - start statin with goal of LDL < 70 DVT Prophylaxis: - SCD Other: - If patient has any neurological deterioration please call me back immediately - LDL < 70 - telemetry monitoring - I have discussed my recommendations with the referring provider - permissive hypertension - will need event monitor or loop recorder as outpatient if atrial fibrillation not found as inpatient - neurology referral as outpatient # Logistics Attestation of consult completion: The patient is located at: [facility]. I performed this phone consultation from my offsite office # Demographics First Name: faby Last Name: haley Facility: [facility] SHAHZAD CHAUDHARI DO Sep 03, 2024 10:45
[2024-09-03] MEDS ORDERED: ASPI-1071 PO (11:02)
[2024-09-03] MEDS ORDERED: CLOP75TA34 PO (11:02)
--- NOTE | 2024-09-03 14:08 | CARDIOLOGY REPORT ---
APPROVED REPORT EXAM: Comprehensive 2D, Doppler, and color-flow Echocardiogram. Patient Location: [address] Blood Pressure: 104/74 mmHg Heart Rate: 73 bpm Rhythm: Sinus Rhythm Indications CVA Hx of Hypertension HDL Current Everyday Smoker Practice Manager: None Previous echo: None 2D Dimensions RVDd 3.8 cm LA Diam4.4 cm RA Minor4.5 cmLVOT Diameter 1.96 (1.8-2.4cm) Ao Asc Diam.3.44 cmCO 5.5 L/min M-Mode Dimensions RVDd 3.84 (2.1-3.2cm) Left Atrium(MM) 3.54 (2.5-4.0cm) IVSd 1.02 (0.7-1.1cm) LVDd 5.03 (4.0-5.6cm) Aortic Root 3.11 (2.2-3.7cm) PWd 1.02 (0.7-1.1cm) Aortic Cusp Exc 1.85 (1.5-2.0cm) IVSs 1.56 cm MV EPSS 0.8 (<0.5cm) LVDs 3.34 (2.0-3.8cm) FS (%) 34 % PWs 1.27 cm ESV(Teich) 45.6 ml LVEF(%) 62 (>50%) Aortic Valve AoV Peak Shaheen. 149.8 cm/s AoV VTI 24.7 cm AO Peak GR. 9.0 mmHg AO Mean GR. 4 mmHg LVOT VTI 22.06 cm LVOT Peak Shaheen. 103.9 cm/s DALJIT(VTI)/BSA 2.69 cm2/m2 DALJIT (VTI) 2.69 cm2 Mitral Valve MV E Velocity 49.6 cm/s MV Peak Gr. 2 mmHg MV DECEL TIME 232 ms MV A Velocity 70.6 cm/s MV Mean Gr. 1 mmHg MV PHT 68 ms E/A Ratio 0.7 MVA (PHT) 3.24 cm2 MV VMax70.5 cm/sMV VMean38.4 cm/s MVA VTI4.29 cm2MV VTI15.5 cm TDI Medial E' P. V 8.71 cm/s E/Medial E' 5.7 Pulmonary Valve RVOT VTI 16.5 cm Tricuspid Valve TR P. Velocity 236 cm/s RAP ESTIMATE 10 mmHg TR Peak Gr. 22 mmHg RVSP 32 mmHg Pulmonary Vein S1 Velocity 71.8 cm/s D2 Velocity 35.7 cm/s PVa Rfudwohx05.9 cm/s PVa [id number] msec LEFT VENTRICLE Normal LV size and wall thickness. Overall systolic function is normal. Overall LVEF is around 60%. RIGHT VENTRICLE Right ventricle appears to be moderately dilated with normal function. Estimated PA systolic pressure is 32 mmHg. ATRIA Left atrium is mildly dilated. Right atrium is moderately dilated. Atrial septum is bowed toward the left, consistent with elevated right atrial pressures. Possible trival PFO is noted by color Doppler. AORTIC VALVE Trileaflet AV appears sclerotic without stenosis or insufficiency. MITRAL VALVE Mild MV annular thickening with thickened chords. No stenosis with trace regurgitation. TRICUSPID VALVE TV appears structurally normal with trace regurgitation. PULMONIC VALVE Grossly normal PV without stenosis, physiologic insufficiency. GREAT VESSELS The aortic root is normal in size. The ascending aorta is normal in size. IVC is not well visualized. PERICARDIUM Grossly normal pericardium. No pericardial effusion seen. Other Information Study Quality: Adequate Conclusion Overall LVEF is around 60%. Normal LV size and wall thickness. Overall systolic function is normal. Right ventricle appears to be moderately dilated with normal function. Estimated PA systolic pressur e is 32 mmHg. Left atrium is mildly dilated. Right atrium is moderately dilated. Atrial septum is bowed toward the left, consistent with elevated right atrial pressures. Possible trival PFO is noted by color Doppler . Trileaflet AV appears sclerotic without stenosis or insufficiency. Mild MV annular thickening with thickened chords. No stenosis with trace regurgitation. TV appears structurally normal with trace regurgitation. Grossly normal PV without stenosis, physiologic insufficiency. Grossly normal pericardium. No pericardial effusion seen.
--- NOTE | 2024-09-03 17:11 | DISCHARGE SUMMARY-Residence ---
Discharge Summary Providers to CC Resident Creating Document: ZOILA KINGISHEDNA, RES ~ Discharge Summary Admission Diagnosis: TIA, Evaluate for CVA Hospital Course DATE OF ADMISSION: 09/01/2024 DATE OF DISCHARGE: 09/03/2024 Labs at the time of discharge WBC 5.7 Hemoglobin 12.7 Platelet count 224 Sodium 142 Potassium 3.9 Creatinine 1.20 BUN 19 Triglycerides 292 Cholesterol 153 LDL 79 HDL 42 A1c of 5.[address] 1. No acute intracranial process. CTA head and neck Nonhemodynamically significant vascular calcification involving bilateral carotid siphons. The anterior and posterior circulation are intact. No significant flow cutoff, stenosis, vascular malformation, or aneurysm is noted. Aortic arch and great vessels demonstrate vascular calcification. The common and internal carotid arteries are normal in course and caliber. Left vertebral dominance is identified. No significant flow cutoff, stenosis, vascular malformation, or aneurysm is noted. Echocardiogram Overall LVEF is around 60%. Normal LV size and wall thickness. Overall systolic function is normal. Right ventricle appears to be moderately dilated with normal function. Estimated PA systolic pressure is 32 mmHg. Left atrium is mildly dilated. Right atrium is moderately dilated. Atrial septum is bowed toward the left, consistent with elevated right atrial pressures. Possible trival PFO is noted by color Doppler. Trileaflet AV appears sclerotic without stenosis or insufficiency. Mild MV annular thickening with thickened chords. No stenosis with trace regurgitation. TV appears structurally normal with trace regurgitation. Grossly normal PV without stenosis, physiologic insufficiency. Grossly normal pericardium. No pericardial effusion seen. Head MRI 1. Small foci of restricted diffusion in the left parietal lobe deep white matter and in the right parietal lobe subcortical white matter may represent small acute to subacute infarcts. There is no gross evidence of acute hemorrhage. Discharge Diagnosis\Comment: Embolic stroke Operations\Procedures: None Consultants: Tele neurology consult Complications: None Condition on DC: Stable New Medications: Aspirin (Ecotrin*) 81 Mg Tablet.dr 1 TAB PO DAILY for 30 Days, #30 TAB.SR Clopidogrel Bisulfate (Clopidogrel) 75 Mg Tablet 75 MG PO DAILY for 21 Days, #21 TAB Do not stop medication unless instructed by prescriber. Continued Medications: Albuterol Sulfate (Ventolin Hfa) 8.5 Gm Inhaler 2 PUFFS INH Q4HPRN, INHALER Atorvastatin Calcium (Atorvastatin Calcium) 80 Mg Tablet 1 TAB PO DAILY for 30 Days, #30 TAB 0 Refills Diphenhydramine HCl (Diphenhydramine HCl) 25 Mg Tablet 1 TAB PO Q6H PRN for allergies for 30 Days, #30 TAB 0 Refills Loratadine (Loratadine) 10 Mg Tablet 1 TAB PO DAILY PRN for allergies, TAB Losartan/Hydrochlorothiazide (Losartan-Hctz 100-12.5 Mg Tab) 100 Mg-12.5 Mg Tablet 1 TAB PO DAILY for 30 Days, #30 TAB 0 Refills Omeprazole (Omeprazole) 20 Mg Capsule.dr 1 CAP PO DAILY, CAP Tizanidine Hcl (Zanaflex) 4 Mg Tablet 1-2 TAB PO HS for 30 Days, #30 TAB 0 Refills Discontinued Medications: Aspirin/Acetaminophen/Caffeine (Excedrin Extra Strength Tablet) 1 Each Tablet 2 TAB PO Q6H PRN for pain Meloxicam (Meloxicam) 15 Mg Tablet 1 TAB PO DAILY for 30 Days, #30 TAB 0 Refills Discharge Summary: This is a 63-year-old male with past medical history of hypertension, hyperlipidemia, migraine, chronic back and neck pain, presented to the ER with numbness of left hand, arm, face, head after a nap in the afternoon. Patient had these symptoms on and off but today for a longer period. He also had some pulsating and sharp headache on the left side. He denies nausea, vomiting, speech difficulty, any weakness. Patient was admitted for possible CVA, TIA, NIHSS score 2, CT head was done, showed no acute intracranial process, urine drug screen negative, CTA head and neck negative, echo showed trivial PFO an ejection fraction 55-60%. Head MRI Small foci of restricted diffusion in the left parietal lobe deep white matter and in the right parietal lobe subcortical white matter may represent small acute to subacute infarcts. There is no gross evidence of acute hemorrhage. Patient is diagnosed with embolic stroke, unknown source. No arrhythmia noted in telemetry. Telenueroconsultation done, recommeneded aspirin 81mg daily, plavix 75mg for 21 days. Lipid panel in normal range, continued pt's home medication atorvastatin 80mg Patient has history for hypertension, blood pressure is normal during the stay. Continued home medications, losartan 100mg and hydrochlorothiazide 12.5 mg daily. Patient also had SAEID at the time of admission likey secondary to renal tubular stasis, improved at the time of discharge. PAtient has improved symptomatically, doesnot have numbbness anymore. He is stable enough to be discharged home, He had the following physical examination findings at the time of discharge, General: Alert, awake, oriented, not in acute distress HEENT: Pterygium present in bilateral eyes, redness of the eyes, drooping of the left eyelid, PERRLA, no icterus, pallor, lymphadenopathy, carotid bruit Respiratory system: Bilateral vesicular breath sounds heard, no adventitious breath sounds CVS: S1-S2 heard, no murmurs/rubs/gallop GI: Soft, nontender, no organomegaly, no guarding/rigidity, bowel sounds present Neuro: Normal tendon reflexes, power of upper and lower extremities bilaterally: 4 x 5, no sensory deficits, no deviation of the angle of the mouth or deviation of the tongue, no gait abnormalities Extremities: No edema cyanosis clubbing/deformities Skin: Warm and dry Discharge medications: aspirin 81 mg plavix 75mg for 21 days. atorvastatin 80mg [id number] Followup with PCP in 2 weeks. Follow up with nuerologist in 2 weeks. Follow up with a editor managing director in two weeks to monitor for any underlying abnormal rhythm. Continue to take Plavix 75 mg for 21 days. Continue to take aspirin 81 mg daily and atorvastatin 80 mg daily. Call 911 or return to ER in case of headache, weakness, numbness, chest pain, palpitations. *Problems/Diagnosis: (1) Embolic stroke Status: Acute (2) CVA (cerebral vascular accident) Status: Acute Total Time Spent on D/C: Up to 30 Minutes Date of Service: Sep 03, 2024 Billing Provider: BUSHRA CHRISTINE MD Common Visit Codes: 42416-RQA/OBS DISCH DAY >30min Problem Qualifiers (1) CVA (cerebral vascular accident): CVA mechanism: unspecified Qualified Codes: I63.9 - Cerebral infarction, unspecified JOSELYN KING, JOSE Sep 03, 2024 16:54 BUSHRA CHRISTINE MD Sep 03, 2024 21:01
== END 2024-09-03 12:30 | disposition home or self-care (01) | DRG 45 ==
LOC: ER 17:28 → ED HOLD 20:01 → ORTHO 4S 21:52
PROVIDERS: ADMIT Surgery; ATTEND Internal Medicine
PROC: B3251ZZ Computerized Tomography (CT Scan) of Bilateral Common Carotid Arteries using Low Osmolar Contrast (ICD-10-PCS; principal; 2024-09-01)
PROC: B32G1ZZ Computerized Tomography (CT Scan) of Bilateral Vertebral Arteries using Low Osmolar Contrast (ICD-10-PCS; 2024-09-01)
PROC: B32R1ZZ Computerized Tomography (CT Scan) of Intracranial Arteries using Low Osmolar Contrast (ICD-10-PCS; 2024-09-01)
PROC: B3281ZZ Computerized Tomography (CT Scan) of Bilateral Internal Carotid Arteries using Low Osmolar Contrast (ICD-10-PCS; 2024-09-01)
DX: I63.89 Other cerebral infarction (principal); N17.0 Acute kidney failure with tubular necrosis; E78.5 Hyperlipidemia, unspecified; G89.29 Other chronic pain; J45.909 Unspecified asthma, uncomplicated; R29.702 NIHSS score 2; K21.9 Gastro-esophageal reflux disease without esophagitis; Z86.73 Personal history of transient ischemic attack (TIA), and cerebral infarction without residual deficits; Z79.899 Other long term (current) drug therapy; Z91.013 Allergy to seafood; Z88.1 Allergy status to other antibiotic agents
CPT/HCPCS: 36415; 70450; 70496; 70498; 70551; 71045; 80048; 80061; 80305; 81003; 82570; 82948; 83036; 83735; 83930; 83935; 84300; 85025; 85610; 85651; 85730; 86140; 87081; 93005; 93306; 94760; 97116; 97161; 97530; 99291; G0378; J1644; J7030; Q9967